=== PATIENT | female | born 1980 | race African-American/Black ===

== ENCOUNTER 2023-03-21 17:13 | Emergency (ER) | payer BC ==
[2023-03-21 17:19] VITALS: BP 126/86; PULSE 69; RESP 18; TEMP 98; BMI 28.1
== END 2023-03-21 19:15 | disposition home or self-care (01) ==
LOC: JER 17:13 → JERFT 17:13
DX: J06.9 Acute upper respiratory infection, unspecified (principal)
CPT/HCPCS: 0241U-QW; 99283-25